=== PATIENT | male | born 1955 | race Caucasian/White ===

== ENCOUNTER 2021-11-24 09:36 | Emergency (ER) | payer OTHER, MEDICARE ==
[~2021-11-24] VITALS: Ht 177.8 cm; Wt 103.9 kg
[2021-11-24 11:22] LABS: ABSOLUTE NEUTROPHILS 7.2 thou/uL (1.4-8.2); BASOPHILS 0.4 % (0.0-2.0); EOSINOPHILS 1.1 % (0.0-3.0); HEMATOCRIT 41.5 % (42.0-52.0); HEMOGLOBIN 13.7 gm/dL (14.0-18.0); LYMPHOCYTES 19.1 % (24.0-44.0); MCV 84.9 fL (80.0-100.0); MONOCYTES 8.9 % (1.0-8.0); PLATELET COUNT 227 thou/uL (150-400); POLYS 70.5 % (36.0-66.0); RBC 4.89 mil/uL (4.50-6.00); RDW 16.1 % (10.5-14.5); WBC 10.2 thou/uL (4.0-11.0)
[2021-11-24 11:27] LABS: CALCIUM 8.4 mg/dL (8.5-10.1); CREATININE 0.7 mg/dL (0.7-1.3); POTASSIUM 3.8 mmol/L (3.5-5.1)
[2021-11-24 11:36] LABS: INR 3.44; PROTIME 35.4 Seconds (10.5-12.1)
[2021-11-24] MEDS ORDERED: NORVASC5 MG PO (13:38)
[2021-11-24] MEDS ORDERED: CARVEDILOL25 MG PO (13:39)
[2021-11-24] MEDS ORDERED: ISORDIL 5MG TABL5 MG PO (13:40)
[2021-11-24] MEDS ORDERED: ASA81BEC PO (13:41)
[2021-11-24] MEDS ORDERED: AMARYL4 MG PO (13:43)
[2021-11-24] MEDS ORDERED: METFORMIN HCL500 M3 PO (13:44)
[2021-11-24] MEDS ORDERED: WARFARIN SODIUM3 MG (13:47)
[2021-11-24] MEDS ORDERED: DOXYCYCLINE 10100 MG PO (14:05)
[2021-11-24 14:26] VITALS: BP 142/99
== END 2021-11-24 14:29 | disposition home or self-care (01) ==
LOC: ER 09:36
PROVIDERS: Emergency Medicine
DX: R04.0 Epistaxis (principal); I10 Essential (primary) hypertension; E78.5 Hyperlipidemia, unspecified; Z98.890 Other specified postprocedural states; Z79.82 Long term (current) use of aspirin; Z79.84 Long term (current) use of oral hypoglycemic drugs; Z79.899 Other long term (current) drug therapy; Z88.2 Allergy status to sulfonamides